=== PATIENT | male | born 1965 | race Caucasian/White ===

== ENCOUNTER 2024-10-04 08:00 | Outpatient (CLI) | payer BC, MEDICAID, SELFPAY ==
[2024-10-04 08:21] VITALS: PULSE 77; RESP 18; O2SAT 97
[2024-10-04] MEDS: albuterol 2.5 mg/3 mL Neb INHALATION (08:21)
[2024-10-04 08:26] VITALS: PULSE 79
== END 2024-10-04 08:01 | disposition home or self-care (01) ==
LOC: RT 08:02
PROVIDERS: PCP Family Medicine; Visit Provider Family Medicine
DX: J45.909 Unspecified asthma, uncomplicated (principal)
CPT/HCPCS: 94060; 94726; 94729; J7613

== ENCOUNTER 2024-10-27 05:58 | Outpatient (CLI) | payer BC, MEDICAID, SELFPAY ==
--- NOTE | 2024-10-27 06:15 | USCV_ITS ---
Heriberto Neff Age: 59 Gender: M : 1965 Exam Date: 10/27/2024 06:23 Ordering Phys: Pako Sifuentes MD Technologist: Justin Wilson Exam Location: [facility] [place]_ Indication: sob BP: 170 / 82 HR: 70 Rhythm: Sinus Technical Quality: Adequate MEASUREMENTS (Male / Female) Normal Values 2D ECHO LV Diastolic Diameter PLAX 3.9 cm 4.2 - 5.9 / 3.9 - 5.3 cm IVS Diastolic Thickness 1.6 cm 0.6 - 1.0 / 0.6 - 0.9 cm IVS Systolic Thickness 2.2 cm LVPW Diastolic Thickness 2.9 cm 0.6 - 1.0 / 0.6 - 0.9 cm LVPW Systolic Thickness 2.8 cm LVOT Diameter 2.0 cm LV Ejection Fraction 2D Teich 68.6 % LV Ejection Fraction MOD 4C 77.5 % LV Ejection Fraction MOD 2C 66.8 % LV Ejection Fraction 2C AL 66.5 % LA Diameter 3.4 cm RA Systolic Volume 4C AL 34.6 ml RA Systolic Volume 4C MOD 34.2 ml LA Sys Volume AL 40.1 cm cubed LA Sys Volume Index AL 17.2 cm cubed/m squared Aorta at Sinotubular Diameter 3.0 cm IVC Diameter 1.7 cm M-MODE LA Ao Ratio MM 1.5 AV Cusp Separation MM 0.7 cm DOPPLER AV Peak Velocity 358.0 cm/s LVOT Peak Velocity 117.0 cm/s AV Area Cont Eq vti 0.8 cm squared AV Area Cont Eq pk 1.0 cm squared MV Peak Velocity 179.0 cm/s MV Area PHT 3.3 cm squared Mitral E to A Ratio 1.0 TV Peak Velocity 253.0 cm/s TR Peak Velocity 256.0 cm/s TR Peak Gradient 26.2 mmHg TR Mean Velocity 208.0 cm/s TR Mean Gradient 18.1 mmHg TR Velocity Time Integral 72.0 cm PV Peak Velocity 119.0 cm/s RV Ejection Time 0.3 s FINDINGS Left Ventricle Left ventricle is normal in size. LV systolic is normal with EF of 60-65%. No regional wall motion abnormalities are seen. Moderate to severe left ventricular hypertrophy. Grade 1 diastolic dysfunction. Right Ventricle Normal in size and function Right Atrium Normal in size Left Atrium Normal in size Mitral Valve Mild mitral annular calcification. Mild to moderate mitral stenosis with a mean gradient of 6.6 mmHg. Mild mitral regurgitation Aortic Valve Aortic valve is thickened. Severe aortic stenosis with aortic valve area of 0.78 cm squared and mean gradient of 34 mmHg. V-max is 3.62 m/s Tricuspid Valve Mild tricuspid regurgitation. Insufficient TR jet to calculate RVSP Pulmonic Valve Mild pulmonic regurgitation. Pericardium Normal Aorta Normal in size IVC Not well visualized CONCLUSIONS LV systolic function is normal with EF of 60-65%. Moderate to severe left ventricular hypertrophy Grade 1 diastolic dysfunction. Mild to moderate mitral stenosis. Mild mitral regurgitation. Severe aortic stenosis. Mild tricuspid regurgitation Mild pulmonic regurgitation No comparison studies are available. Bertrand Astorga MD (Electronically Signed) Final Date: 28 October 2024 10:02 S
== END 2024-10-27 05:59 | disposition home or self-care (01) ==
LOC: RAD 05:59
PROVIDERS: PCP Family Medicine; Visit Provider Family Medicine
DX: R06.02 Shortness of breath (principal); R01.1 Cardiac murmur, unspecified; J45.909 Unspecified asthma, uncomplicated; R93.1 Abnormal findings on diagnostic imaging of heart and coronary circulation; I34.81 Nonrheumatic mitral (valve) annulus calcification; I35.8 Other nonrheumatic aortic valve disorders; I35.0 Nonrheumatic aortic (valve) stenosis; I07.1 Rheumatic tricuspid insufficiency; I37.1 Nonrheumatic pulmonary valve insufficiency
CPT/HCPCS: 93306

== ENCOUNTER → 2024-11-17 09:49 | Outpatient (BNVA) | payer BC, MEDICAID, SELFPAY | PROVIDERS: PCP Family Medicine; Referring Provider Family Medicine; Visit Provider Internal Medicine | DX: R07.9 Chest pain, unspecified (principal); R94.31 Abnormal electrocardiogram [ECG] [EKG] | CPT/HCPCS: 93005 ==

== ENCOUNTER 2024-12-01 05:54 | Outpatient (CLI) | payer BC, MEDICAID, SELFPAY ==
[2024-12-01] VITALS (23 sets, daily range): BP systolic 109–156; BP diastolic 79–97; PULSE 75–88; RESP 14–20; TEMP 36.9; O2SAT 91–95; BMI 30.2
[2024-12-01 06:20] LABS: Basophils % 0.6 %; Eosinophils # 0.4 10^3/uL (0.0-0.8); Eosinophils % 4.9 %; Hematocrit 44.5 % (37-53); Lymphocytes # 1.6 10^3/uL (0.8-4.8); Lymphocytes % 21.8 %; Mean Corpuscular HGB Conc 34.6 g/dL (30-55); Mean Corpuscular Hemoglobin 32.4 pg (27-33); Mean Corpuscular Volume 93.5 fl (82-101); Mean Platelet Volume 11.5 fL (7.4-10.4); Monocytes # 0.8 10^3/uL (0.2-0.9); Monocytes % 11.7 %; Neutrophils # 4.36 10^3/uL (1.8-7.7); Neutrophils % 60.6 %; Nucleated Red Blood Cells % 0 %; Platelet Count 144 10^3/cmm (157-399); Red Blood Count 4.76 10^6/uL (3.85-5.65); Red Cell Distribution Width 12.5 % (12.1-15.1); White Blood Count 7.19 10^3/uL (3.29-11.43)
[2024-12-01] MEDS: diphenhydrAMINE 50 mg Capsule PO (06:20)
[2024-12-01] MEDS: aspirin 325 mg Tablet PO (06:20)
[2024-12-01 06:39] LABS: Anion Gap 15.9 (5-19); Blood Urea Nitrogen 8 mg/dL (6-20); Calcium 9.3 mg/dL (8.5-10.5); Carbon Dioxide 23 mmol/L (22-29); Chloride 106 mmol/L (98-107); Creatinine Clr Calc Pharmacy 125.8442; Glomerular Filtration Rate 98.9 mL/min (90-130); Glucose 101 mg/dL (65-115); Osmolality Calculated 290 mOsm/kg (285-295); Potassium 3.9 mmol/L (3.5-5.1); Sodium 141 mmol/L (136-145)
--- NOTE | 2024-12-01 07:00 | XACV_ITS ---
Exam Room: 2 Ht: 185 cm Wt: 104 kg BSA: 2.34 m2 Gender: Male : 1965 Any Known Allergies: No known allergies Exam Priority: Routine Procedure(s): Procedure Description: Diagnostic procedure Procedure Description: Right Heart Catheterization Procedure Description: Left ventriculography Procedure Description: O2 saturation Procedure Description: Coronary Angiography Diagnostic Cath Status: Elective Diagnostic Findings * INDICATION: Severe aortic stenosis. * Left Main has no significant disease. * Circumflex has no significant disease. 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 Small sized vessel with no significant disease. * Aortic valve study: Critical aortic stenosis. Aortic valve area is 1cm2 with mean gradient across aortic valve of 69mmHg. Peak to peak gradient of 105mmHg. Indexed aortic valve area is 0.46. * Proximal Left Anterior Descending: minimal 30% stenosis, GOGO: 3 flow. * Coronary angiography shows left dominance. Conclusions 1. Non-obstructive coronary artery disease. 2. Critical aortic stenosis with aortic valve area by cath of 1cm2, indexed aortic valve area of 0.46, mean gradient across aortic valve of 69mmHg and peak to peak gradient of 105mmHg. Recommendations * Patient will be referred to CT surgery for aortic valve replacement. * Outpatient cardiology follow up in 2 weeks. Interventional RX Recommendation: other cardiac therapy w/o CABG/PCI Diagnostic RX Recommendation: other cardiac therapy w/o CABG/PCI Anticoagulation: Heparin Pressures Phase:Rest AO : 89 / 74 ( 81 ) @ 8:10:00 AM 100 / 71 ( 85 ) @ 8:36:00 AM 96 / 69 ( 82 ) @ 8:37:00 AM 95 / 69 ( 81 ) @ 8:37:00 AM 102 / 73 ( 87 ) @ 8:39:00 AM LV : 207 / -8 / 8 @ 8:36:00 AM 206 / -5 / 11 @ 8:37:00 AM 205 / -6 / 11 @ 8:37:00 AM 207 / -1 / 14 @ 8:39:00 AM RV : 45 / -1 / 7 @ 8:04:00 AM PA : 38 / 11 ( 19 ) @ 8:02:00 AM RA : a wave = 18 v wave = 9 mean = 8 @ 8:04:00 AM PCW : a wave = 17 v wave = 15 mean = 11 @ 8:02:00 AM O2 Content Phase:Rest PA : O2 Content O2: 73.7 @ 8:36:00 AM Saturations Phase:Rest AO : 92 @ 8:10:00 AM PA : 74 @ 8:36:00 AM Cardiac Output Phase:Rest Emiliano : 7 @ 8:46:32 AM Emiliano Cardiac Index: 3 @ 8:46:32 AM Flow Phase:Rest Qp : 7 @ 8:46:32 AM Qs : 7 @ 8:46:32 AM Valves Phase:DefaultPhase AV : 105.0 @ 8:46:32 AM AV Mean Gradient: 69.0 @ 8:46:32 AM AV Flow: 392 @ 8:46:32 AM AV Area: 1.1 @ 8:46:32 AM AV Area Index: 0.46 @ 8:46:32 AM Clinical Evaluation EBL: 5mL-10mL Procedural Details Procedure Consent Obtained. Pre-Procedure Time Out. Identified patient by full name and date of as verbalized by the patient/guarantor. Does the consent match the physician's order: Yes. Accurate & Complete Informed Consent: Yes. Inpatient/Outpatient History & Physical on Chart: Yes. If H&P is completed, is and addenduem needed: No. Visualize and Verify Site with Patient/Guarantor: N/A. Relevant Radiology Images available: Yes. The risks, benefits, and alternatives of sedation and/or procedure were discussed by physician. The patient agrees to continue. Procedure started. [facility] Clinical Fraility Score: 3: Managing Well. Casualty Insurance Claim Adjuster Indications: Valvular Disease/Severe aortic stenosis. Chest Pain Symptom Assessment: Typical Angina Symptoms. Cardiovascular Instability: No. Correct patient, site and procedure confirmed by cath team. PERRLA. Strong, equal hand edge drummer bilaterally. Lungs clear x 5 lobes. IV Site on Arrival: 20 gauge in the right anticubital for RHC procedure. IV Site on Arrival: 20 gauge in the left anticubital. IV Fluids: 0.9% NaCl at KVO. 0 mL infused prior to produce laborer. Pre Procedural Pulses: bilateral dorsalis pedis was Doppled. Pre Procedural Pulses: bilateral posterior tibial was Doppled. Pre Procedural Pulses: bilateral radial was 2+. Patient to be on room air for RHC procedure. right groin was prepped with chloroprep then draped in the usual sterile fashion. right radial was prepped with chloroprep then draped in the usual sterile fashion. right brachial was prepped with chloroprep then draped in the usual sterile fashion. Physician notified. Patient's family in CPRU room #3. Dr. Astorga will update at the completion of the procedure. Baseline sample Acquired. HR: 83 BPM. Equipment: 6F - Radial. Cardiac Cath Pack. ACIST Manifold Kit Model BT 2000. Heparinized Saline (2 units/mL), 1000 mL bag. Physician arrived. Physician scrubbed in. Immediate Pre-Procedure Time Out. Correct Patient: Yes; Correct Procedure: Yes; Correct Site: Yes; Correct Patient Position: Yes; Correct Supplies: Yes; Dried Flammable Prep: Yes; Blood Products Available: N/A. Micropuncture wire in through the existing 20g PIV in the right brachial vein. 20g PIV cath out OTW. Lidocaine 1% infiltrated to the right brachial. [place]-Willy catheter inserted. Oximetry samples were obtained. Normal venous range: 60-85%. Normal arterial range: 95-100%. Pressure measurements obtained. [place]ucl[place]-Willy out. Lidocaine 1% infiltrated to the right radial. Arterial access obtained. ABG drawn respiratory therapy was called to run sats. A 5 jordanian TIG catheter in over the exchange J wire. Multiple views taken of left coronary artery. Oxygen started at 2liters/min via nasal canula. Catheter redirected to the RCA, unable to cannulate. Catheter removed over the exchange J wire. A 5 jordanian JR4 catheter in over the exchange J wire. RT here to bead picker sats. Multiple views taken of right coronary artery. Catheter removed over the exchange J wire. A 5 jordanian AL1 catheter in over the exchange J wire. Exchange J wire out, 0.035 x 260cm stiff angled glidewire in. Glidewire out. Exchange J wire in. Catheter removed over the exchange J wire. A 6 jordanian Mikey dual lumen catheter in over the exchange J wire. Gradient taken: LV 205/-7,11; AO 95/69(81); Mean: 71mmHg, Peak to Peak: 110mmHg, SEP: 17sec/min; HR: 79 BPM; SpO2: 96%. Gradient taken: LV 207/-2,14; AO 102/73(87); Mean: 69mmHg, Peak to Peak: 105mmHg, SEP: 18sec/min; HR: 79 BPM; SpO2: 96%. Catheter removed over the exchange J wire. Physician scrubbed out. A TR Band was successful obtaining hemostatsis at the Right Radial artery insertion site. A Manual Compression was successful obtaining hemostatsis at the Right Brachial Vein insertion site. Post Procedure: Pulses reassessed and unchanged. PERRLA. Strong, equal hand edge drummer bilaterally. No VTE prophylaxis required. Medication's Wasted: Lidocaine 1% = 18 mL. Medication's Wasted: Nitro = 49.8 mg. Medication's Wasted: Heparin = 4000 units. Total IV fluids: 50 mL. Post-op diagnosis: Severe aortic stenosis. Complications: none. Estimated blood loss: 5mL-10mL. Responsiveness - Normal response to verbal stimuli; alert and oriented, PERRLA. Circulation: W/N/L, pulses unchanged. Airway - Unaffected, no intervention required; spontaneous ventilation. Nausea/Vomiting: No. Procedure completed. Patient transferred by wheelchair to CPRU. Vital chart was stopped. Access Site Site: Right Brachial Vein Sheath Size: 6 Fr Hemostasis Method: Manual Compression Hemostasis Success: Successful Site: Right Radial artery Sheath Size: 6 Fr Hemostasis Method: TR Band Hemostasis Success: Successful Procedure Medications Start: 7:58 AM Stop: 7:58 AM Medication: Versed Amount: 1 mg Route: I.V. Start: 7:58 AM Stop: 7:58 AM Medication: Fentanyl Amount: 25 mcg Route: I.V. Start: 8:05 AM Stop: 8:05 AM Medication: Versed Amount: 1 mg Route: I.V. Start: 8:06 AM Stop: 8:06 AM Medication: Fentanyl Amount: 25 mcg Route: I.V. Start: 8:07 AM Stop: 8:07 AM Medication: Nitrogylcerin Amount: 200 mcg Route: I.A. Start: 8:09 AM Stop: 8:09 AM Medication: Heparin Amount: 5000 units Route: I.V. Start: 8:09 AM Stop: 8:09 AM Medication: Versed Amount: 1 mg Route: I.V. Start: 8:09 AM Stop: 8:09 AM Medication: Fentanyl Amount: 25 mcg Route: I.V. Start: 8:22 AM Stop: 8:22 AM Medication: Versed Amount: 1 mg Route: I.V. Start: 8:22 AM Stop: 8:22 AM Medication: Fentanyl Amount: 25 mcg Route: I.V. I, the attending physician, have reviewed and verified all procedure medications. Yes, all medications given per verbal order History/Risk Factors Hypertension: Yes Dyslipidemia: Yes Peripheral Arterial Disease (PAD): No Myocardial Infarction (MS): No Obesity: No Renal Disease: No Tobacco Use: Current/Recent(w/in 1 year) Prior Interventions PCI: No CABG: No Valve Surgery: No Report Signatures Finalized by Bertrand Astorga MD on 12/06/2024 09:56 AM
--- NOTE | 2024-12-01 07:50 | W.PM.OPSUD ---
Surgery/Procedure H&P Update DATE OF PROCEDURE: December 01, 2024 DATE H&P PERFORMED: 11/17/24 H&P UPDATE INFORMATION: I have reviewed H&P completed within last 30 days, I have examined patient prior to procedure and No changes to prior documentation PREOP DIAGNOSIS: Severe aortic stenosis PRIMARY INDICATION FOR PROCEDURE: Severe aortic stenosis PLANNED PROCEDURE: Operation Date: 12/01/24 07:00 Proposed Procedures p Cardiac Catheterization - RLHC w/wo LV & Karena(Bilateral) - Bertrand Astorga M.D Possible percutaneous coronary intervention PATIENT REASSESSED PRIOR TO SEDATION, WITH NO CHANGE NOTED: Yes PHYSICAL EXAM: alert, oriented x 3, clear to auscultation bilaterally and regular rate & rhythm OTHER PERTINENT EXAM FINDINGS: Grade 3/6 systolic murmur AIRWAY EVAL/ANESTHESIA PLAN: normal airway, ASA III, Local Anesthesia, Risks, benefits & alternatives of sedation and/or procedure discussed and Patient agrees to continue as planned ADDITIONAL INFORMATION: Moderate sedation
[2024-12-01 08:18] LABS: Arterial Blood Gas Hematocrit 46.2 % (42-52); Blood Gas Operator Identificat glc; Blood Gas Sample Site Not specified; Blood Gas Sample Type Not specified; Carboxyhemoglobin 1.9 %THgb (0.4-20.1); HGB O2 Sat 90.2 % (95-100); Methemoglobin 0.3 % (0.4-1.5); Total Hemoglobin 15.1 g/dL (14-18)
[2024-12-01 08:21] LABS: Arterial Blood Gas Hematocrit 44.6 % (42-52); Blood Gas Sample Site Not specified; Blood Gas Sample Type Not specified; Carboxyhemoglobin 1.9 %THgb (0.4-20.1); HGB O2 Sat 71.6 % (95-100); Total Hemoglobin 14.6 g/dL (14-18)
--- NOTE | 2024-12-01 08:46 | PM.PROC ---
Procedure Note: Date of procedure: 12/01/24 Pre-procedure diagnosis: Severe aortic stenosis Post-procedure diagnosis: same Procedure: Patent coronary arteries. Severe aortic stenosis with mean gradient across aortic valve of 69mmHg and peak to peak gradient of 105mmHg. Refer for aortic valve replacement. Performing Provider: Bertrand Astorga Estimated blood loss (mL): 10 Complications: None Condition: stable Disposition: same day (Same day discharge) Coding Level of Care Code Acute Code for Mariano Hernandez
[2024-12-01 09:47] LABS: Blood Gas Operator Identificat GLC
--- NOTE | 2024-12-01 11:14 | P.SS_ITS ---
<Statement entered by Bertrand Astorga M.D - 12/01/24 22:43> Patient was evaluated and cared for in conjunction with an advanced practice practitioner. I personally examined the patient and reviewed the chart and all pertinent data including imaging, telemetry, and laboratory results. I discussed the patient in detail with the advanced practice practitioner. Please see their note for short stay summary, results and agreed upon plan of care for the patient with following change: patient was noted to have a wrist hematoma requiring placement of TR band again for 2 more hours. Patient was discharged in a stable condition. Short Stay Summary Providers Date of Admit/Discharge: 12/01/24 Attending Provider: Bertrand Astorga M.D Primary Care Provider: Pako Sifuentes MD Chief Complaint: I35.0 HPI History of Present Illness Heriberto Neff is a 59 year old male with past medical history of hyperlipidemia, hypertension, aortic stenosis. He came today for coronary angiogram in workup of aortic stenosis. Review of Systems Card: Reports: chest pain and dyspnea on exertion; Denies: palpitations, irregular heart rhythm, edema, swelling of feet/ankles, lightheadedness, syncope, pre-syncope, orthopnea or leg pain with exertion Resp: Denies: dyspnea, productive cough or non-productive cough GI: Denies: hematochezia : Denies: hematuria Skin/Breast: Reports: surgical incision Gene/Lymph: Denies: easy bleeding Home Meds/Allergies Home Medications and Allergies Home Medications ?Medication ?Instructions ?Recorded ?Confirmed ?Type albuterol sulfate 90 mcg/actuation 2 puff inhalation Q 6H PRN 11/17/24 12/01/24 History aerosol inhaler (Ventolin HFA) Shortness Of Breath cetirizine 10 mg tablet 10 mg PO DAILY PRN Allergy S ymptoms 11/17/24 12/01/24 History fluticasone 250 mcg-salmeterol 50 1 inh inhalation BID 11/17/24 12/01/24 History mcg/dose blistr powdr for inhalation (Advair Diskus) gemfibrozil 600 mg tablet 600 mg PO DAILY 11/17/2404/20 History sildenafil 100 mg tablet (Viagra) 100 mg PO DAILY PRN Erectile 11/17/24 12/01/24 History Held on 12/01/24. Dysfunction Instructions: discuss with continuous drier operator Allergies Allergy/AdvReac Type Severity Reaction Status Date / Time No Known Allergies Allergy Verified 11/17/24 10:01 PFSH Acute PFSH: Social History Smoking and tobacco/nicotine status: current every day tobacco/nicotine user (chewing tobacco) Vitals/I&O/Wt Last Vital Signs Temp 98.4 F 12/01/24 06:24 Pulse 84 12/01/24 11:10 Resp 15 12/01/24 11:10 BP 141/83 12/01/24 11:10 Pulse Ox 94 12/01/24 11:10 O2 Del Method Room Air 12/01/24 06:24 Weight last 48 hrs Weight 229 lb Physical Exam Const: COMMON NORMALS: no acute distress and patient oriented x3 GENERAL APPEARANCE: cooperative ORIENTATION/CONSCIOUSNESS: Yes awake, Yes oriented to person, Yes oriented to place and Yes oriented to time Chest: COMMONS NORMALS: normal inspection of the chest and normal palpation of entire chest wall CHEST: Yes Symmetrical chest wall rise Resp: COMMON NORMALS: normal respiratory effort, No retractions, No use of accessory muscles and clear to auscultation bilaterally AUSCULTATION: clear to auscultation bilaterally Cardio: COMMON NORMALS: regular rate, regular rhythm, S2 normal heart sound present, No gallops present (Cardio), No clicks present (Cardio) and No rub (Cardio) RATE: regular rate RHYTHM: regular rhythm HEART SOUNDS: S2 normal heart sound present and Murmur heart sound present systolic Intensity: IV/ PERIPHERAL PULSES: radial pulses present positive right 2+ and femoral pulses present positive right 2+ Neuro: COMMON NORMALS: patient oriented x3 and moves all extremities SENSORIUM/ORIENTATION: Yes oriented to person, Yes oriented to place and Yes oriented to time Skin: WOUNDS: Yes surgical site (no hematoma palpable) Details: no odor Hospital Course Hospital Course He was found to have patent coronary arteries, severe aortic stenosis with mean gradient 69 mmHg, peak to peak gradient 25 mmHg. He will be referred for aortic valve replacement. No complications with right radial cath site. Blood pressure has been well-controlled. He is awake alert and ready for discharge [place]. Discharge Summary Resume amlodipine 10 mg daily, gemfibrozil 600 mg daily. Follow up in cardiology clinic with cardiology ENTERPRISE APPLICATION ADMINISTRATOR in 7 to 10 days. No lifting over 5 pounds with the right arm for the next 3 days. SSS Data Data Completed and Pending: Pending at discharge Category Date Time Status VICTIMS ADVOCATE CLERK/SPECIALIST request for service Routin e Exams 12/01/24 07:00 Ordered Discharge Plan Discharge Patient Disposition: Home Prescriptions: Continued cetirizine 10 mg tablet 10 mg PO DAILY PRN (Reason: Allergy Symptoms) albuterol sulfate [Ventolin HFA] 90 mcg/actuation HFA aerosol inhaler 2 puff inhalation Q6H PRN (Reason: Shortness Of Breath) fluticasone propion-salmeterol [Advair Diskus] 250-50 mcg/dose blister with device 1 inh inhalation BID gemfibrozil 600 mg tablet 600 mg PO DAILY amlodipine [Norvasc] 10 mg tablet 10 mg PO DAILY Qty: 90 3RF Held sildenafil [Viagra] 100 mg tablet 100 mg PO DAILY PRN (Reason: Erectile Dysfunction) Hold Instructions: discuss with continuous drier operator Rx Instructions: administer 30 minutes to 4 hours before activity Discharge Orders: Discharge Order (Routine); Ordered 12/01/24 Ordered By: Marion Salazar Referrals: Kinza Calderón, ENTERPRISE APPLICATION ADMINISTRATOR [Nurse Practitioner] - 12/20/24 3:30 pm Diet: Advance as tolerated Activity: Increase activity as tolerated Patient Instructions: Midazolam (By injection), Fentanyl (By injection), Low Sodium Diet, DASH Eating Plan (DC), Low-Sodium Diet (DC), After Radial Heart Catheterization (GEN), Right Heart Catheterization (DC) Print Language: Greenlandic Attestations Medical Necessity Statement*: Plan to discharge home Time Spent in Patient Care*: less than 30 min Quality Metrics Clinical Quality Measures: [ No reported AMI, CVA or VTE this stay ] Coding Level of Care Code Acute Code for Chg Fwd
[2024-12-01] MEDS: fentaNYL 50 mcg/mL INJ 2mL 25 MCG IVP (12:21)
== END 2024-12-01 16:05 | disposition home or self-care (01) ==
LOC: CCL 09:34 → CSU 15:14
PROVIDERS: PCP Family Medicine; Visit Provider Internal Medicine
DX: I35.0 Nonrheumatic aortic (valve) stenosis (principal); I10 Essential (primary) hypertension; E78.5 Hyperlipidemia, unspecified; I25.10 Atherosclerotic heart disease of native coronary artery without angina pectoris; F17.220 Nicotine dependence, chewing tobacco, uncomplicated; R01.1 Cardiac murmur, unspecified
CPT/HCPCS: 36415; 80048; 82810; 85025; 93460; 96374; 99152; 99153; C1751; C1769; C1887; C1894; J1644; J2250; J3010; J3490; J7030; J9999; Q0163; Q9967

== ENCOUNTER → 2025-01-19 11:40 | Outpatient (BNVA) | payer BC, MEDICAID, SELFPAY | PROVIDERS: PCP Family Medicine; Referring Provider Surgery; Visit Provider Internal Medicine | DX: R06.02 Shortness of breath (principal); J90 Pleural effusion, not elsewhere classified; I51.7 Cardiomegaly | CPT/HCPCS: 71046 ==

== ENCOUNTER → 2025-03-02 09:13 | Outpatient (BNVA) | payer BC, MEDICAID, SELFPAY | PROVIDERS: PCP Family Medicine; Referring Provider Surgery; Visit Provider Nurse Practitioner Family | DX: Z95.2 Presence of prosthetic heart valve (principal); J90 Pleural effusion, not elsewhere classified | CPT/HCPCS: 71046 ==